=== PATIENT | male | born 1935 | race Caucasian/White ===

== ENCOUNTER 2020-11-18 22:22 | Emergency (ER) | payer OTHER ==
[~2020-11-18] VITALS: Ht 177.8 cm; Wt 79.4 kg
[2020-11-18] MEDS ORDERED: HYDROMORPHONE 1 MG/1 ML DISP.SYRIN IV ONE ×2 (22:45→23:15)
[2020-11-18] MEDS ORDERED: ONDANSETRON 4 MG/2 ML VIAL IV ONE (22:45)
[2020-11-18 22:57] LABS: HEMATOCRIT 36.3 % (36.7-47.1); MEAN CORPUSCULAR HEMOGLOBIN 33.2 uug (23.8-33.4); MEAN CORPUSCULAR VOLUME 96.2 fL (73.0-96.2); PLATELET COUNT (AUTO) 203 K/uL (152-348)
[2020-11-18] MEDS ORDERED: ONDANSETRON 4 MG/2 ML VIAL ONE (23:00)
[2020-11-18] MEDS ORDERED: HYDROMORPHONE 1 MG/1 ML DISP.SYRIN ONE ×2 (23:00→23:21)
[2020-11-18 23:10] LABS: BILIRUBIN,DIRECT 0.1 mg/dL (0.0-0.2); BILIRUBIN,TOTAL 0.4 mg/dL (0.2-1.0); CREATININE 1.2 mg/dL (0.6-1.3); POTASSIUM 4.3 mmol/L (3.5-5.1); TOTAL PROTEIN, SERUM 6.3 g/dL (6.4-8.2)
--- NOTE | 2020-11-19 00:58 | NUR ---
Received transfer info from [facility]. [facility] [phone] Accepting MD: Dr. Velez ALS transport pickup ETA [id number]
--- NOTE | 2020-11-19 01:10 | NUR ---
[facility] [address] here to transport patient to [facility]. Report given to Con.
== END 2020-11-19 01:25 | disposition short-term general hospital (02) ==
LOC: ER 22:23
DX: S72.002D Fracture of unspecified part of neck of left femur, subsequent encounter for closed fracture with routine healing (principal); M25.552 Pain in left hip; X58.XXXD Exposure to other specified factors, subsequent encounter; Z20.822 Contact with and (suspected) exposure to COVID-19
CPT/HCPCS: 36415; 72170; 73502; 73551; 80048; 80076; 85025; 85730; 87426; 96374; 96375; 99285; J1170 ×2; J2405; A4663